=== PATIENT | male | born 1955 | race Caucasian/White ===

== ENCOUNTER 2017-07-20 05:39 | Day surgery (SDC) | payer MEDICARE ==
[2017-07-11 10:37] VITALS: BP 135/85
[~2017-07-20] VITALS: Ht 177.8 cm; Wt 123.6 kg
[~2017-07-20 05:39] MED LIST: ASPI-496 PO; ATEN50TA41 PO; GABA300C10 PO; HYDR-3240 PO; LACT1CAP35 PO; PSYL0.528 PO; TAMS-11 PO
[2017-07-20] MEDS ORDERED: LIDOCAINE 1%, 2ML ONE (06:12)
[2017-07-20] MEDS ORDERED: LACTATED RINGERS 1,000 ML IV SCH (06:38)
[2017-07-20] MEDS ORDERED: LIDOCAINE 1%, 2ML SQ PRN (07:00)
[2017-07-20] MEDS ORDERED: FENTANYL PF 100 MCG/2ML ONE (07:05)
[2017-07-20] MEDS ORDERED: PROPOFOL 10 MG/ML, 20ML ONE (07:05)
[2017-07-20] MEDS ORDERED: DEXAMETHASONE 4 MG/ML, 1ML ONE ×2 (07:05)
[2017-07-20] MEDS ORDERED: CEFAZOLIN 1,000 MG ONE ×2 (07:05)
[2017-07-20] MEDS ORDERED: MIDAZOLAM 1 MG/ML, 2ML ONE (07:05)
[2017-07-20] MEDS ORDERED: ONDANSETRON 2MG/ML, 2ML ONE ×2 (07:05)
[2017-07-20] MEDS ORDERED: GLYCOPYRROLATE 0.2MG/1ML, 5ML ONE (07:45)
[2017-07-20] MEDS ORDERED: PROMETHAZINE 25 MG/ML, 1ML IV PRN (08:30)
[2017-07-20] MEDS ORDERED: ACETAMINOPHEN 325 MG TABLET PO PRN (08:30)
[2017-07-20] MEDS ORDERED: OXYcodone 5 MG/5 ML ORAL.SOL UDC PO PRN (08:30)
[2017-07-20] MEDS ORDERED: FENTANYL PF 100 MCG/2ML IV PRN (08:30)
[2017-07-20] MEDS ORDERED: ACETAMINOPHEN 650 MG/20.3 ML UDC ONE (09:30)
[2017-07-20] MEDS ORDERED: LABETALOL 5MG/ML, 20ML ONE (09:32)
[2017-07-20] MEDS: LABETALOL 5MG/ML, 20ML IV PRN ×3 (09:35→09:57)
[2017-07-20] MEDS ORDERED: hydrALAzine 20 MG/ML, 1ML ONE (10:00)
[2017-07-20] MEDS: hydrALAzine 20 MG/ML, 1ML IV PRN ×2 (10:02→10:12)
== END 2017-07-20 11:10 ==
LOC: OUT 05:39
PROVIDERS: ATTEND Urology
DX: N20.0 Calculus of kidney (principal); I10 Essential (primary) hypertension; Z98.890 Other specified postprocedural states; Z88.0 Allergy status to penicillin
CPT/HCPCS: 50590; J0360; J0690; J1100; J2250; J2405; J2704; J3010; J3490